=== PATIENT | female | born 1940 | race African-American/Black ===

== ENCOUNTER 2018-07-30 12:48 | Emergency (ER) | payer MEDICARE, MEDICAID ==
[~2018-07-30] VITALS: Ht 170.2 cm; Wt 147.0 kg
[2018-07-30 15:32] LABS: BASOPHILS % 0.5 % (0.0-2.0); EOSINOPHILS % 1.6 % (0.0-5.0); HEMATOCRIT. 43.3 % (36.0-48.0); HEMOGLOBIN. 13.4 g/dL (12.0-16.0); MEAN CORPUSCULAR HEMOGLOBIN 28.7 pg (28.0-32.0); MEAN CORPUSCULAR VOLUME 93.1 fL (81.0-99.0); MEAN PLATELET VOLUME 10.4 fl (7.4-10.4); MONOCYTES % 11.1 % (2.0-8.0); NEUTROPHILS % 59.8 % (40.0-76.0); PLATELET 128 x1000/uL (130-400); RED BLOOD CELL COUNT 4.66 mill/uL (4.2-5.4); RED CELL DISTRIBUTION WIDTH 16.6 % (11.6-14.6)
[2018-07-30 15:37] LABS: CHLORIDE 102 mEq/L (98-107)
[2018-07-30 15:39] LABS: PROTHROMBIN TIME 10.2 sec (9.1-11.1)
[2018-07-30] MEDS ORDERED: ACETAMINOPHEN 325MG TABLET PO ONE (17:00)
[2018-07-30] MEDS ORDERED: OXYMETAZOLINE HCL NASAL SPRAY 15ML BOTHNSTRLS STA (17:31)
[2018-07-30] MEDS ORDERED: SILVER NITRATE APPLICATOR STICK TOP ONE (17:45)
[2018-07-30 19:23] VITALS: BP 144/75
[2018-10-22] MEDS ORDERED: NITR100C MT (14:45)
[2018-10-22] MEDS ORDERED: PULM50 HHN (14:45)
[2018-10-22] MEDS ORDERED: FURO-151 MT (14:45)
[2018-10-22] MEDS ORDERED: ALBU6.7H9 INH (14:48)
== END 2018-07-30 19:31 | disposition home or self-care (01) ==
LOC: ER 13:04
DX: K14.8 Other diseases of tongue (principal); I25.10 Atherosclerotic heart disease of native coronary artery without angina pectoris; I11.0 Hypertensive heart disease with heart failure; I50.9 Heart failure, unspecified; Z86.73 Personal history of transient ischemic attack (TIA), and cerebral infarction without residual deficits; Z98.890 Other specified postprocedural states; Z88.0 Allergy status to penicillin; Z88.5 Allergy status to narcotic agent
CPT/HCPCS: 36415; 80048; 86850; 86900; 99283

== ENCOUNTER 2018-10-19 14:56 | Inpatient (IN) | payer MEDICARE, MEDICAID ==
[~2018-10-19] VITALS: Ht 165.1 cm; Wt 173.8 kg
[2018-10-19] MEDS ORDERED: METHYLPREDNISOLONE SOD SUCC 125 MG/2 ML VIAL IV STA (15:40)
[2018-10-19] MEDS ORDERED: FUROSEMIDE 40MG/4ML VIAL IV ONE (15:45)
[2018-10-19] MEDS ORDERED: LEVOFLOXACIN 750MG PREMIX 150 ML IV ONE (15:45)
[2018-10-19] MEDS ORDERED: ASPIRIN 81MG TABLET PO ONE (15:45)
[2018-10-19] MEDS ORDERED: IPRATROPIUM/ALBUTEROL 0.5-3(2.5)MG/3ML NEB HHN ONE (15:45)
[2018-10-19 16:03] LABS: BG BASE EXCESS 12.4 mmol/L (-2.0-2.0); BG CARBOXYHEMOGLOBIN 0.7 % (0.5-1.5); BG DEOXYHEMOGLOBIN 6.8 % (0.0-5.0); BG FRACTION INSPIRED OXYGEN 32; BG HCO3 ACT 41.2 mmol/L (22.0-26.0); BG METHEMOGLOBIN 0.3 % (0.0-1.5); BG OXYGEN SATURATION 93.1 % (92.0-98.5); BG OXYHEMOGLOBIN 92.2 % (94.0-97.0); BG PCO2 81.1 mmHg (35.0-45.0); BG PH 7.324 (7.350-7.450); BG PO2 71.2 mmHg (75.0-100.0); BG SAMPLE SITE RIGHT RADIAL; BG TOTAL HEMOGLOBIN 10.9 g/dL (12.0-18.0); BG VENT MODE NASAL CANNULA
[2018-10-19 16:14] LABS: BASOPHILS % 0.3 % (0.0-2.0); EOSINOPHILS % 0.7 % (0.0-5.0); HEMATOCRIT. 34.8 % (36.0-48.0); HEMOGLOBIN. 10.4 g/dL (12.0-16.0); LYMPHOCYTES % 16.9 % (20.0-50.0); MEAN CORPUSCULAR HEMOGLOBIN 27.3 pg (28.0-32.0); MEAN CORPUSCULAR VOLUME 91.3 fL (81.0-99.0); MEAN PLATELET VOLUME 9.1 fl (7.4-10.4); MONOCYTES % 12.6 % (2.0-8.0); NEUTROPHILS % 69.5 % (40.0-76.0); PLATELET 175 x1000/uL (130-400); RED BLOOD CELL COUNT 3.81 mill/uL (4.2-5.4); RED CELL DISTRIBUTION WIDTH 16.7 % (11.6-14.6)
[2018-10-19 16:19] LABS: CHLORIDE 104 mEq/L (98-107)
[2018-10-19 16:21] LABS: PARTIAL THROMBOPLASTIN TIME 25.1 sec (23.4-31.0); PROTHROMBIN TIME 10.7 sec (9.6-11.0)
[2018-10-19] MEDS ORDERED: ACETAMINOPHEN 650MG/20.3ML UDC GT PRN (17:30)
[2018-10-19] MEDS ORDERED: GUAIFENESIN 200MG/10ML SUGAR FREE UDC PO PRN (17:30)
[2018-10-19] MEDS ORDERED: ACETAMINOPHEN 650MG SUPP PR PRN (17:30)
[2018-10-19] MEDS ORDERED: NA PHOS,M-B/NA PHOS,DI-BA ENEMA 118ML PR PRN (17:30)
[2018-10-19] MEDS ORDERED: MAGNESIUM/ALUMINUM HYDROXIDE/SIMETHICONE 30ML UDC PO PRN (17:30)
[2018-10-19] MEDS ORDERED: IPRATROPIUM/ALBUTEROL 0.5-3(2.5)MG/3ML NEB INH PRN (17:30)
[2018-10-19] MEDS ORDERED: DOCUSATE SODIUM 100MG CAPSULE PO PRN (17:30)
[2018-10-19] MEDS ORDERED: ONDANSETRON HCL 4MG/2ML INJ IV PRN (17:30)
[2018-10-19] MEDS: SODIUM CHLORIDE 0.9% 1,000 ML IV SCH (19:53)
[2018-10-19 20:17] LABS: CLARITY URINE CLOUDY (CLEAR); COLOR URINE YELLOW (YELLOW); KETONES URINE NEGATIVE (NEGATIVE); LEUKOCYTE ESTERASE URINE 1+ (NEGATIVE); NITRITE URINE POSITIVE (NEGATIVE); OCCULT BLOOD URINE TRACE (NEGATIVE); PH URINE 7.5 (4.5-8.0); PROTEIN URINE TRACE (NEGATIVE); SPECIFIC GRAVITY URINE 1.015 (1.005-1.030)
[2018-10-19 20:20] LABS: *AMPHETAMINES SCREEN URINE NEGATIVE (NEGATIVE); *BARBITURATES SCREEN URINE NEGATIVE (NEGATIVE); *BENZODIAZEPINES SCREEN URINE NEGATIVE (NEGATIVE); *COCAINE SCREEN URINE NEGATIVE (NEGATIVE)
[2018-10-19 20:21] LABS: CANNABINOID URINE SCREEN NEGATIVE (NEGATIVE); METHADONE URINE SCREEN NEGATIVE (NEGATIVE); OPIATES URINE SCREEN NEGATIVE (NEGATIVE); PHENCYCLIDINE URINE SCREEN NEGATIVE (NEGATIVE)
[2018-10-19] MEDS: ACETAMINOPHEN 325MG TABLET PO PRN (23:29)
[2018-10-19 23:30] VITALS: BP 152/74
[2018-10-20] VITALS (12 sets, daily range): BP systolic 141–176; BP diastolic 73–102
[2018-10-20] MEDS: CLONIDINE 0.1MG TABLET PO PRN ×2 (01:13→09:05)
[2018-10-20] MEDS: IPRATROPIUM/ALBUTEROL 0.5-3(2.5)MG/3ML NEB INH SCH ×3 (01:51→14:51)
[2018-10-20] MEDS: DIPHENHYDRAMINE 50MG/ML VIAL IV PRN (03:24)
[2018-10-20] MEDS: SODIUM CHLORIDE 0.9% INJ 3ML FLUSH IVF SCH ×3 (05:47→21:50)
[2018-10-20] MEDS ORDERED: IBUPROFEN 400MG TABLET PO PRN (06:15)
[2018-10-20 06:52] LABS: BG BASE EXCESS 7.9 mmol/L (-2.0-2.0); BG CARBOXYHEMOGLOBIN 0.7 % (0.5-1.5); BG HCO3 ACT 35.2 mmol/L (22.0-26.0); BG METHEMOGLOBIN 0.3 % (0.0-1.5); BG OXYGEN SATURATION 90.9 % (92.0-98.5); BG PCO2 65.3 mmHg (35.0-45.0); BG PO2 64.4 mmHg (75.0-100.0); BG SAMPLE SITE RIGHT RADIAL; BG TOTAL HEMOGLOBIN 10.9 g/dL (12.0-18.0); BG VENT MODE NASAL CANNULA
[2018-10-20 07:06] LABS: BASOPHILS % 0.1 % (0.0-2.0); HEMATOCRIT. 32.4 % (36.0-48.0); HEMOGLOBIN. 9.9 g/dL (12.0-16.0); LYMPHOCYTES % 8.7 % (20.0-50.0); MEAN CORPUSCULAR HEMOGLOBIN 27.4 pg (28.0-32.0); MEAN CORPUSCULAR VOLUME 89.7 fL (81.0-99.0); MEAN PLATELET VOLUME 9.3 fl (7.4-10.4); NEUTROPHILS % 89.2 % (40.0-76.0); PLATELET 196 x1000/uL (130-400); RED BLOOD CELL COUNT 3.61 mill/uL (4.2-5.4); RED CELL DISTRIBUTION WIDTH 16.5 % (11.6-14.6)
[2018-10-20 07:12] LABS: CHLORIDE 101 mEq/L (98-107)
[2018-10-20 07:36] LABS: LDL CHOLESTEROL 101 mg/dL (5-100)
[2018-10-20 07:37] LABS: HDL CHOLESTEROL 47 mg/dL (40-59)
[2018-10-20] MEDS: ENOXAPARIN 40MG/0.4ML SYR SUBCUT SCH ×2 (09:05→20:21)
[2018-10-20] MEDS ORDERED: LIDOCAINE HCL/PF 1% 2ML VIAL ONE (11:06)
[2018-10-20] MEDS: ACETAMINOPHEN 325MG TABLET PO PRN (13:54)
[2018-10-20] MEDS: SODIUM CHLORIDE 0.9% 1,000 ML IV SCH (13:57)
[2018-10-20] MEDS ORDERED: ALBUTEROL (0.083%) 2.5MG/3ML NEB HHN PRN (15:00)
[2018-10-20] MEDS: METHYLPREDNISOLONE SOD SUCC 40 MG/ML VIAL IV SCH ×2 (15:33→21:48)
[2018-10-20] MEDS ORDERED: FUROSEMIDE 40MG/4ML VIAL IVP NR (16:00)
[2018-10-20] MEDS: LEVOFLOXACIN 500MG TABLET PO SCH (16:45)
[2018-10-20] MEDS: FAMOTIDINE 20MG TABLET PO SCH (20:21)
[2018-10-20] MEDS: ALBUTEROL (0.083%) 2.5MG/3ML NEB HHN SCH (20:34)
[2018-10-21] VITALS (13 sets, daily range): BP systolic 150–165; BP diastolic 83–103
[2018-10-21] MEDS: DIPHENHYDRAMINE 50MG/ML VIAL IV PRN (01:25)
[2018-10-21] MEDS: ALBUTEROL (0.083%) 2.5MG/3ML NEB HHN SCH ×2 (01:54→21:25)
[2018-10-21] MEDS: SODIUM CHLORIDE 0.9% INJ 3ML FLUSH IVF SCH ×3 (05:50→21:00)
[2018-10-21] MEDS: METHYLPREDNISOLONE SOD SUCC 40 MG/ML VIAL IV SCH (05:50)
[2018-10-21] MEDS: ENOXAPARIN 40MG/0.4ML SYR SUBCUT SCH ×2 (08:47→21:00)
[2018-10-21] MEDS: FUROSEMIDE 40MG/4ML VIAL IVP SCH (08:47)
[2018-10-21] MEDS: CLONIDINE 0.1MG TABLET PO PRN ×2 (09:10→21:36)
[2018-10-21] MEDS: LEVOFLOXACIN 500MG TABLET PO SCH (11:36)
[2018-10-21] MEDS ORDERED: MEROPENEM 500 MG in SODIUM CHLORIDE 0.9% 50 ML IV SCH (12:15)
[2018-10-21 13:19] LABS: CHLORIDE 101 mEq/L (98-107)
[2018-10-21 13:22] LABS: HEMATOCRIT. 34.8 % (36.0-48.0); HEMOGLOBIN. 10.5 g/dL (12.0-16.0); MEAN CORPUSCULAR VOLUME 89.5 fL (81.0-99.0); MEAN PLATELET VOLUME 9.6 fl (7.4-10.4); PLATELET 199 x1000/uL (130-400); RED BLOOD CELL COUNT 3.89 mill/uL (4.2-5.4); RED CELL DISTRIBUTION WIDTH 16.7 % (11.6-14.6)
[2018-10-21] MEDS ORDERED: NITROFURANTOIN 100MG M/M CAPSULE PO SCH (13:30)
[2018-10-21 13:49] LABS: PLATELET ESTIMATE NORMAL
[2018-10-21] MEDS: ACETAMINOPHEN 325MG TABLET PO PRN (18:51)
[2018-10-21] MEDS: NITROFURANTOIN 100MG M/M CAPSULE PO SCH (20:59)
[2018-10-21] MEDS: FAMOTIDINE 20MG TABLET PO SCH (21:00)
[2018-10-22] VITALS (14 sets, daily range): BP systolic 118–162; BP diastolic 79–98
[2018-10-22] MEDS: ALBUTEROL (0.083%) 2.5MG/3ML NEB HHN SCH ×4 (02:00→19:52)
[2018-10-22] MEDS: DIPHENHYDRAMINE 50MG/ML VIAL IV PRN (02:00)
[2018-10-22] MEDS: SODIUM CHLORIDE 0.9% INJ 3ML FLUSH IVF SCH ×3 (06:00→21:25)
[2018-10-22] MEDS ORDERED: METHYLPREDNISOLONE SOD SUCC 40 MG/ML VIAL IV SCH (09:00)
[2018-10-22] MEDS: NITROFURANTOIN 100MG M/M CAPSULE PO SCH ×2 (09:40→21:24)
[2018-10-22] MEDS: FUROSEMIDE 40MG/4ML VIAL IVP SCH (09:40)
[2018-10-22] MEDS: ENOXAPARIN 40MG/0.4ML SYR SUBCUT SCH ×2 (09:41→21:24)
[2018-10-22] MEDS ORDERED: PULM50 HHN (14:45)
[2018-10-22] MEDS ORDERED: FURO-151 MT (14:45)
[2018-10-22] MEDS ORDERED: NITR100C MT (14:45)
[2018-10-22] MEDS ORDERED: ALBU6.7H9 INH (14:48)
[2018-10-22] MEDS: BUDESONIDE 0.5MG/2ML NEB HHN SCH ×2 (16:39→19:52)
[2018-10-22] MEDS: FAMOTIDINE 20MG TABLET PO SCH (21:24)
[2018-10-23] VITALS (10 sets, daily range): BP systolic 139–191; BP diastolic 56–95
[2018-10-23] MEDS: DIPHENHYDRAMINE 50MG/ML VIAL IV PRN (00:57)
[2018-10-23] MEDS: ALBUTEROL (0.083%) 2.5MG/3ML NEB HHN SCH ×2 (01:52→07:50)
[2018-10-23] MEDS: SODIUM CHLORIDE 0.9% INJ 3ML FLUSH IVF SCH (06:29)
[2018-10-23] MEDS: BUDESONIDE 0.5MG/2ML NEB HHN SCH (07:50)
[2018-10-23 08:34] LABS: BASOPHILS % 0.4 % (0.0-2.0); EOSINOPHILS % 1.5 % (0.0-5.0); HEMOGLOBIN. 11.3 g/dL (12.0-16.0); LYMPHOCYTES % 31.3 % (20.0-50.0); MEAN CORPUSCULAR HEMOGLOBIN 27.1 pg (28.0-32.0); MEAN CORPUSCULAR VOLUME 88.9 fL (81.0-99.0); MONOCYTES % 12.2 % (2.0-8.0); NEUTROPHILS % 54.6 % (40.0-76.0); PLATELET 201 x1000/uL (130-400); RED BLOOD CELL COUNT 4.16 mill/uL (4.2-5.4); RED CELL DISTRIBUTION WIDTH 16.9 % (11.6-14.6)
[2018-10-23 08:40] LABS: CHLORIDE 102 mEq/L (98-107)
[2018-10-23] MEDS: FUROSEMIDE 40MG/4ML VIAL IVP SCH (09:11)
[2018-10-23] MEDS: NITROFURANTOIN 100MG M/M CAPSULE PO SCH (09:11)
[2018-10-23] MEDS: ENOXAPARIN 40MG/0.4ML SYR SUBCUT SCH (09:12)
[2018-10-23] MEDS: ACETAMINOPHEN 325MG TABLET PO PRN (09:44)
== END 2018-10-23 12:50 | disposition home or self-care (01) | DRG 871 ==
LOC: ER 14:56 → 5EST 17:10 → EDBEDREQSVC 17:14 → EDBEDREQ 17:14 → ENRESERV 20:06
PROVIDERS: ADMIT Family Medicine; ATTEND Family Medicine
PROC: 5A09357 Assistance with Respiratory Ventilation, Less than 24 Consecutive Hours, Continuous Positive Airway Pressure (ICD-10-PCS; principal; 2018-10-19)
PROC: 5A09357 Assistance with Respiratory Ventilation, Less than 24 Consecutive Hours, Continuous Positive Airway Pressure (ICD-10-PCS; 2018-10-20)
PROC: 5A09357 Assistance with Respiratory Ventilation, Less than 24 Consecutive Hours, Continuous Positive Airway Pressure (ICD-10-PCS; 2018-10-21)
PROC: 5A09357 Assistance with Respiratory Ventilation, Less than 24 Consecutive Hours, Continuous Positive Airway Pressure (ICD-10-PCS; 2018-10-22)
DX: A41.51 Sepsis due to Escherichia coli [E. coli] (principal); J96.01 Acute respiratory failure with hypoxia; I50.43 Acute on chronic combined systolic (congestive) and diastolic (congestive) heart failure; J96.02 Acute respiratory failure with hypercapnia; J44.1 Chronic obstructive pulmonary disease with (acute) exacerbation; E44.1 Mild protein-calorie malnutrition; E66.2 Morbid (severe) obesity with alveolar hypoventilation; N39.0 Urinary tract infection, site not specified; E87.2 Acidosis; I69.354 Hemiplegia and hemiparesis following cerebral infarction affecting left non-dominant side; Z68.43 Body mass index [BMI] 50.0-59.9, adult; I11.0 Hypertensive heart disease with heart failure; I25.10 Atherosclerotic heart disease of native coronary artery without angina pectoris; L89.329 Pressure ulcer of left buttock, unspecified stage; R26.81 Unsteadiness on feet; K21.9 Gastro-esophageal reflux disease without esophagitis; Z99.81 Dependence on supplemental oxygen; Z85.3 Personal history of malignant neoplasm of breast; Z87.891 Personal history of nicotine dependence; Z88.0 Allergy status to penicillin; Z88.5 Allergy status to narcotic agent
CPT/HCPCS: 36415; 36600; 51702; 71045; 80061; 80305; 82375; 82805; 83605; 83880; 84134; 84484; 87077; 87186; 93005; 93970; 94640; 94660; 96365; 96375; 97116; 97162; 97166; 97530; 97535; 99291; A6261; J1200; J1650; J1940; J1956; J2920; J2930; J3490; J7611; J7620; J7626

== ENCOUNTER 2018-12-01 16:35 | Inpatient (IN) | payer MEDICARE, MEDICAID ==
[~2018-12-01] VITALS: Ht 170.2 cm; Wt 163.3 kg
[~2018-12-01 16:35] MED LIST: ALBU6.7H9 INH; ESCI20TA36 PO; FURO-151 MT; NITR100C MT; PULM50 HHN
[2018-12-01] MEDS ORDERED: CLONIDINE 0.1MG TABLET PO PRN (19:15)
[2018-12-01] MEDS ORDERED: IPRATROPIUM/ALBUTEROL 0.5-3(2.5)MG/3ML NEB HHN PRN (19:15)
[2018-12-01] MEDS ORDERED: DIPHENHYDRAMINE 50MG CAPSULE PO PRN ×2 (19:15→19:30)
[2018-12-01] MEDS ORDERED: DEXTROSE 50% WATER 50ML SYRINGE IV PRN ×2 (19:15→19:45)
[2018-12-01] MEDS ORDERED: ONDANSETRON 4MG ODT PO PRN (19:15)
[2018-12-01] MEDS: IPRATROPIUM/ALBUTEROL 0.5-3(2.5)MG/3ML NEB HHN SCH (20:02)
[2018-12-01 20:15] VITALS: BP 95/51
[2018-12-01] MEDS ORDERED: CITALOPRAM HYDROBROMIDE 20MG TABLET PO SCH (21:00)
[2018-12-01] MEDS: FUROSEMIDE 40MG TABLET PO SCH (21:48)
[2018-12-01] MEDS: ENOXAPARIN 40MG/0.4ML SYR SUBCUT SCH (21:49)
[2018-12-01] MEDS: AMLODIPINE 2.5MG TABLET PO SCH (21:49)
[2018-12-01] MEDS: CITALOPRAM HYDROBROMIDE 20MG TABLET PO SCH (21:49)
[2018-12-01] MEDS: BLOOD SUGAR DIAGNOSTIC STRIP TEST SCH (21:54)
[2018-12-01] MEDS: INSULIN LISPRO 100 UNITS/ML SUBCUT SCH (21:59)
[2018-12-01] MEDS: MAGNESIUM/ALUMINUM HYDROXIDE/SIMETHICONE 30ML UDC PO PRN (22:32)
[2018-12-01] MEDS: NITROFURANTOIN MACROCRYSTAL 50MG CAPSULE PO SCH (23:14)
[2018-12-02] MEDS: IPRATROPIUM/ALBUTEROL 0.5-3(2.5)MG/3ML NEB HHN SCH ×4 (01:06→20:04)
[2018-12-02] MEDS: NITROFURANTOIN MACROCRYSTAL 50MG CAPSULE PO SCH ×4 (06:02→23:26)
[2018-12-02] MEDS: BLOOD SUGAR DIAGNOSTIC STRIP TEST SCH ×4 (06:08→20:49)
[2018-12-02] MEDS: INSULIN LISPRO 100 UNITS/ML SUBCUT SCH ×4 (06:28→20:49)
[2018-12-02 07:29] LABS: CHLORIDE 98 mEq/L (98-107)
[2018-12-02 07:36] LABS: HEMATOCRIT. 37.6 % (36.0-48.0); HEMOGLOBIN. 11.6 g/dL (12.0-16.0); MEAN CORPUSCULAR HEMOGLOBIN 26.2 pg (28.0-32.0); MEAN CORPUSCULAR VOLUME 85.1 fL (81.0-99.0); MEAN PLATELET VOLUME 8.7 fl (7.4-10.4); PLATELET 171 x1000/uL (130-400); RED BLOOD CELL COUNT 4.42 mill/uL (4.2-5.4); RED CELL DISTRIBUTION WIDTH 18.1 % (11.6-14.6)
[2018-12-02 08:30] VITALS: BP 144/96
[2018-12-02] MEDS: FUROSEMIDE 40MG TABLET PO SCH ×2 (10:04→20:38)
[2018-12-02] MEDS: AMLODIPINE 2.5MG TABLET PO SCH ×2 (10:04→20:38)
[2018-12-02] MEDS: ENOXAPARIN 40MG/0.4ML SYR SUBCUT SCH ×2 (10:06→20:39)
[2018-12-02 10:13] LABS: PLATELET ESTIMATE NORMAL
[2018-12-02] MEDS ORDERED: POTASSIUM CHLORIDE 20MEQ TABLET SR PO NR (10:30)
[2018-12-02] MEDS: ACETAMINOPHEN 650MG/20.3ML UDC PO PRN (10:38)
[2018-12-02] MEDS: MAGNESIUM/ALUMINUM HYDROXIDE/SIMETHICONE 30ML UDC PO PRN (18:38)
[2018-12-02 20:00] VITALS: BP 119/78
[2018-12-02] MEDS: CITALOPRAM HYDROBROMIDE 20MG TABLET PO SCH (20:37)
[2018-12-03] MEDS: ACETAMINOPHEN 650MG/20.3ML UDC PO PRN (01:13)
[2018-12-03] MEDS: NITROFURANTOIN MACROCRYSTAL 50MG CAPSULE PO SCH ×4 (06:25→23:07)
[2018-12-03] MEDS: BLOOD SUGAR DIAGNOSTIC STRIP TEST SCH ×4 (06:29→21:26)
[2018-12-03] MEDS: INSULIN LISPRO 100 UNITS/ML SUBCUT SCH ×4 (06:37→21:28)
[2018-12-03 07:17] LABS: CHLORIDE 98 mEq/L (98-107)
[2018-12-03 07:28] LABS: HEMATOCRIT. 36.4 % (36.0-48.0); HEMOGLOBIN. 10.9 g/dL (12.0-16.0); MEAN CORPUSCULAR HEMOGLOBIN 25.5 pg (28.0-32.0); MEAN CORPUSCULAR VOLUME 85.2 fL (81.0-99.0); MEAN PLATELET VOLUME 8.9 fl (7.4-10.4); PLATELET 159 x1000/uL (130-400); RED BLOOD CELL COUNT 4.28 mill/uL (4.2-5.4); RED CELL DISTRIBUTION WIDTH 18.2 % (11.6-14.6)
[2018-12-03 08:12] VITALS: BP 140/74
[2018-12-03] MEDS ORDERED: POTASSIUM CHLORIDE 20MEQ TABLET SR PO NR (08:30)
[2018-12-03] MEDS: ENOXAPARIN 40MG/0.4ML SYR SUBCUT SCH ×2 (09:00→21:26)
[2018-12-03] MEDS: FUROSEMIDE 40MG TABLET PO SCH ×2 (09:00→21:25)
[2018-12-03] MEDS: AMLODIPINE 2.5MG TABLET PO SCH ×2 (09:00→21:00)
[2018-12-03] MEDS: IPRATROPIUM/ALBUTEROL 0.5-3(2.5)MG/3ML NEB HHN SCH ×3 (09:52→21:25)
[2018-12-03] MEDS: MAGNESIUM/ALUMINUM HYDROXIDE/SIMETHICONE 30ML UDC PO PRN (10:25)
[2018-12-03 16:28] LABS: PLATELET ESTIMATE NORMAL
[2018-12-03 16:57] LABS: CLARITY URINE CLOUDY (CLEAR); COLOR URINE YELLOW (YELLOW); KETONES URINE NEGATIVE (NEGATIVE); LEUKOCYTE ESTERASE URINE 1+ (NEGATIVE); NITRITE URINE NEGATIVE (NEGATIVE); OCCULT BLOOD URINE 1+ (NEGATIVE); PH URINE 5.5 (4.5-8.0); PROTEIN URINE TRACE (NEGATIVE); SPECIFIC GRAVITY URINE 1.016 (1.005-1.030)
[2018-12-03 20:00] VITALS: BP 118/64
[2018-12-03] MEDS: CITALOPRAM HYDROBROMIDE 20MG TABLET PO SCH (21:24)
[2018-12-03] MEDS ORDERED: ZOLPIDEM TARTRATE 5MG TABLET PO PRN (23:00)
[2018-12-04] MEDS: DIPHENHYDRAMINE 25MG CAPSULE PO PRN (00:52)
[2018-12-04] MEDS: ACETAMINOPHEN 650MG/20.3ML UDC PO PRN (00:52)
[2018-12-04] MEDS: IPRATROPIUM/ALBUTEROL 0.5-3(2.5)MG/3ML NEB HHN SCH ×4 (02:05→20:54)
[2018-12-04] MEDS: BLOOD SUGAR DIAGNOSTIC STRIP TEST SCH ×4 (06:12→21:09)
[2018-12-04] MEDS: INSULIN LISPRO 100 UNITS/ML SUBCUT SCH ×4 (06:16→21:09)
[2018-12-04] MEDS: NITROFURANTOIN MACROCRYSTAL 50MG CAPSULE PO SCH ×4 (06:31→23:52)
[2018-12-04 07:01] LABS: HEMATOCRIT. 34.9 % (36.0-48.0); HEMOGLOBIN. 10.8 g/dL (12.0-16.0); MEAN CORPUSCULAR HEMOGLOBIN 26.1 pg (28.0-32.0); MEAN CORPUSCULAR VOLUME 84.4 fL (81.0-99.0); MEAN PLATELET VOLUME 9.3 fl (7.4-10.4); PLATELET 170 x1000/uL (130-400); RED BLOOD CELL COUNT 4.14 mill/uL (4.2-5.4); RED CELL DISTRIBUTION WIDTH 18.4 % (11.6-14.6)
[2018-12-04 07:14] LABS: FOLIC ACID (FOLATE) SERUM 8.4 ng/mL (>5.38)
[2018-12-04 07:23] LABS: CHLORIDE 100 mEq/L (98-107)
[2018-12-04 07:54] LABS: TOTAL IRON BINDING CAPACITY 404 ug/dL (250-450)
[2018-12-04 07:57] LABS: PHOSPHORUS 3.5 mg/dL (2.5-4.9)
[2018-12-04 08:08] VITALS: BP 146/92
[2018-12-04] MEDS: POTASSIUM CHLORIDE 20MEQ TABLET SR PO SCH (09:42)
[2018-12-04] MEDS: AMLODIPINE 2.5MG TABLET PO SCH ×2 (09:42→20:33)
[2018-12-04] MEDS: FUROSEMIDE 40MG TABLET PO SCH ×2 (09:42→20:34)
[2018-12-04] MEDS: ENOXAPARIN 40MG/0.4ML SYR SUBCUT SCH ×2 (09:43→20:34)
[2018-12-04 10:38] LABS: NUCLEATED RED BLOOD CELLS 1 /100 WBC; PLATELET ESTIMATE NORMAL
[2018-12-04] MEDS ORDERED: DOCUSATE SODIUM 100MG CAPSULE PO ONE (12:30)
[2018-12-04] MEDS ORDERED: IRON SUCROSE COMPLEX 100 MG/5 ML ML IV SCH (14:00)
[2018-12-04 20:00] VITALS: BP 126/77
[2018-12-04] MEDS: CITALOPRAM HYDROBROMIDE 20MG TABLET PO SCH (20:33)
[2018-12-04] MEDS: DOCUSATE SODIUM 100MG CAPSULE PO SCH (20:34)
[2018-12-04] MEDS: IRON SUCROSE COMPLEX 100 MG in SODIUM CHLORIDE 0.9% 100 ML IV SCH (21:44)
[2018-12-05] MEDS: IPRATROPIUM/ALBUTEROL 0.5-3(2.5)MG/3ML NEB HHN SCH ×3 (02:25→15:39)
[2018-12-05] MEDS: NITROFURANTOIN MACROCRYSTAL 50MG CAPSULE PO SCH ×2 (05:48→12:11)
[2018-12-05] MEDS: BLOOD SUGAR DIAGNOSTIC STRIP TEST SCH ×4 (06:18→20:40)
[2018-12-05] MEDS: INSULIN LISPRO 100 UNITS/ML SUBCUT SCH ×4 (06:18→20:41)
[2018-12-05 06:45] LABS: HEMATOCRIT. 34.6 % (36.0-48.0); HEMOGLOBIN. 10.5 g/dL (12.0-16.0); MEAN CORPUSCULAR HEMOGLOBIN 25.9 pg (28.0-32.0); MEAN CORPUSCULAR VOLUME 85.2 fL (81.0-99.0); MEAN PLATELET VOLUME 8.9 fl (7.4-10.4); PLATELET 168 x1000/uL (130-400); RED BLOOD CELL COUNT 4.07 mill/uL (4.2-5.4); RED CELL DISTRIBUTION WIDTH 18.6 % (11.6-14.6)
[2018-12-05 07:00] VITALS: BP 140/87
[2018-12-05 07:02] LABS: CHLORIDE 100 mEq/L (98-107)
[2018-12-05] MEDS: FUROSEMIDE 40MG TABLET PO SCH ×2 (08:24→20:35)
[2018-12-05] MEDS: DOCUSATE SODIUM 100MG CAPSULE PO SCH ×2 (08:24→16:00)
[2018-12-05] MEDS: POTASSIUM CHLORIDE 20MEQ TABLET SR PO SCH (08:24)
[2018-12-05] MEDS: AMLODIPINE 2.5MG TABLET PO SCH ×2 (08:24→20:35)
[2018-12-05] MEDS: ENOXAPARIN 40MG/0.4ML SYR SUBCUT SCH ×2 (08:25→20:35)
[2018-12-05 09:08] LABS: ALBUMIN 3.5 g/dL (2.9-4.4); ALPHA-1-GLOBULIN 0.2 g/dL (0.0-0.4); ALPHA-2-GLOBULIN 0.7 g/dL (0.4-1.0); BETA GLOBULIN 1.4 g/dL (0.7-1.3); GAMMA GLOBULINS 1.3 g/dL (0.4-1.8); GLOBULIN TOTAL 3.5 g/dL (2.2-3.9); M-SPIKE Not Observed g/dL (Not Observed)
[2018-12-05 10:25] LABS: PLATELET ESTIMATE NORMAL
[2018-12-05] MEDS: ACETAMINOPHEN 650MG/20.3ML UDC PO PRN (15:55)
[2018-12-05 20:00] VITALS: BP 121/82
[2018-12-05] MEDS: IRON SUCROSE COMPLEX 100 MG in SODIUM CHLORIDE 0.9% 100 ML IV SCH (20:36)
[2018-12-05] MEDS: CITALOPRAM HYDROBROMIDE 20MG TABLET PO SCH (21:31)
[2018-12-06] MEDS: IPRATROPIUM/ALBUTEROL 0.5-3(2.5)MG/3ML NEB HHN SCH ×4 (00:38→22:37)
[2018-12-06] MEDS: DIPHENHYDRAMINE 25MG CAPSULE PO PRN ×2 (01:34→23:00)
[2018-12-06] MEDS: ACETAMINOPHEN 650MG/20.3ML UDC PO PRN ×2 (01:35→23:01)
[2018-12-06] MEDS: BLOOD SUGAR DIAGNOSTIC STRIP TEST SCH ×4 (06:08→21:00)
[2018-12-06] MEDS: INSULIN LISPRO 100 UNITS/ML SUBCUT SCH ×4 (06:18→22:03)
[2018-12-06 07:18] LABS: HEMATOCRIT. 32.9 % (36.0-48.0); HEMOGLOBIN. 10.2 g/dL (12.0-16.0); MEAN CORPUSCULAR HEMOGLOBIN 26.3 pg (28.0-32.0); MEAN CORPUSCULAR VOLUME 84.9 fL (81.0-99.0); PLATELET 172 x1000/uL (130-400); RED BLOOD CELL COUNT 3.87 mill/uL (4.2-5.4); RED CELL DISTRIBUTION WIDTH 18.2 % (11.6-14.6)
[2018-12-06] MEDS: DOCUSATE SODIUM 100MG CAPSULE PO SCH ×2 (07:54→15:56)
[2018-12-06 08:03] VITALS: BP 141/89
[2018-12-06] MEDS: ENOXAPARIN 40MG/0.4ML SYR SUBCUT SCH (08:37)
[2018-12-06] MEDS: POTASSIUM CHLORIDE 20MEQ TABLET SR PO SCH (08:38)
[2018-12-06] MEDS: FUROSEMIDE 40MG TABLET PO SCH ×2 (08:38→22:02)
[2018-12-06] MEDS: TRAMADOL 50MG TABLET PO PRN (08:38)
[2018-12-06] MEDS: AMLODIPINE 2.5MG TABLET PO SCH ×2 (08:38→22:03)
[2018-12-06] MEDS ORDERED: CYCLOBENZAPRINE 10MG TABLET PO PRN (09:00)
[2018-12-06 10:22] LABS: PLATELET ESTIMATE NORMAL
[2018-12-06] MEDS: FERROUS SULFATE 325MG TABLET PO SCH ×2 (12:33→16:19)
[2018-12-06] MEDS: ENOXAPARIN 150MG/ML SYR SUBCUT SCH (16:55)
[2018-12-06 17:12] LABS: CLARITY URINE CLOUDY (CLEAR); COLOR URINE YELLOW (YELLOW); KETONES URINE NEGATIVE (NEGATIVE); LEUKOCYTE ESTERASE URINE 2+ (NEGATIVE); NITRITE URINE POSITIVE (NEGATIVE); OCCULT BLOOD URINE 3+ (NEGATIVE); PROTEIN URINE NEGATIVE (NEGATIVE); SPECIFIC GRAVITY URINE 1.012 (1.005-1.030); UROBILINOGEN URINE 0.2 E.U./dL (0.2-1.0)
[2018-12-06 20:00] VITALS: BP 119/80
[2018-12-06] MEDS: CITALOPRAM HYDROBROMIDE 20MG TABLET PO SCH (22:02)
[2018-12-07 04:22] LABS: ANGIOTENSION CONVERTING ENZYME 27 U/L (14-82)
[2018-12-07] MEDS: IPRATROPIUM/ALBUTEROL 0.5-3(2.5)MG/3ML NEB HHN SCH ×4 (04:33→21:22)
[2018-12-07] MEDS: BLOOD SUGAR DIAGNOSTIC STRIP TEST SCH ×4 (05:39→20:39)
[2018-12-07] MEDS: ENOXAPARIN 150MG/ML SYR SUBCUT SCH ×2 (05:40→17:12)
[2018-12-07] MEDS: INSULIN LISPRO 100 UNITS/ML SUBCUT SCH ×4 (05:51→20:39)
[2018-12-07 07:14] LABS: HEMATOCRIT. 33.4 % (36.0-48.0); HEMOGLOBIN. 10.4 g/dL (12.0-16.0); MEAN CORPUSCULAR HEMOGLOBIN 26.6 pg (28.0-32.0); MEAN CORPUSCULAR VOLUME 85.7 fL (81.0-99.0); MEAN PLATELET VOLUME 10.1 fl (7.4-10.4); PLATELET 187 x1000/uL (130-400); RED CELL DISTRIBUTION WIDTH 18.5 % (11.6-14.6)
[2018-12-07 08:08] VITALS: BP 112/73
[2018-12-07 08:43] LABS: CHLORIDE 103 mEq/L (98-107)
[2018-12-07] MEDS: FUROSEMIDE 40MG TABLET PO SCH ×2 (09:22→20:39)
[2018-12-07] MEDS: POTASSIUM CHLORIDE 20MEQ TABLET SR PO SCH (09:22)
[2018-12-07] MEDS: DOCUSATE SODIUM 100MG CAPSULE PO SCH ×2 (09:22→17:10)
[2018-12-07] MEDS: AMLODIPINE 2.5MG TABLET PO SCH ×2 (09:23→20:39)
[2018-12-07] MEDS: FERROUS SULFATE 325MG TABLET PO SCH ×3 (09:23→17:10)
[2018-12-07] MEDS ORDERED: CEFTRIAXONE 2 G PREMIX 50 ML IV SCH (09:45)
[2018-12-07] MEDS: LEVOFLOXACIN 250MG TABLET PO SCH (10:47)
[2018-12-07 20:00] VITALS: BP 118/75
[2018-12-07] MEDS: CITALOPRAM HYDROBROMIDE 20MG TABLET PO SCH (20:39)
[2018-12-07] MEDS: ACETAMINOPHEN 650MG/20.3ML UDC PO PRN (23:05)
[2018-12-07] MEDS: DIPHENHYDRAMINE 25MG CAPSULE PO PRN (23:05)
[2018-12-08] MEDS: IPRATROPIUM/ALBUTEROL 0.5-3(2.5)MG/3ML NEB HHN SCH ×3 (00:44→21:41)
[2018-12-08 03:46] LABS: PLATELET ESTIMATE NORMAL
[2018-12-08] MEDS: BLOOD SUGAR DIAGNOSTIC STRIP TEST SCH ×4 (06:47→21:55)
[2018-12-08] MEDS: ENOXAPARIN 150MG/ML SYR SUBCUT SCH ×2 (06:47→16:57)
[2018-12-08 07:12] LABS: HEMATOCRIT. 34.6 % (36.0-48.0); HEMOGLOBIN. 10.5 g/dL (12.0-16.0); MEAN CORPUSCULAR HEMOGLOBIN 25.9 pg (28.0-32.0); PLATELET 182 x1000/uL (130-400); RED BLOOD CELL COUNT 4.07 mill/uL (4.2-5.4); RED CELL DISTRIBUTION WIDTH 18.4 % (11.6-14.6)
[2018-12-08 08:05] VITALS: BP 127/77
[2018-12-08] MEDS: FUROSEMIDE 40MG TABLET PO SCH ×2 (08:35→21:54)
[2018-12-08] MEDS: FERROUS SULFATE 325MG TABLET PO SCH ×3 (08:35→16:56)
[2018-12-08] MEDS: AMLODIPINE 2.5MG TABLET PO SCH ×2 (08:35→21:00)
[2018-12-08] MEDS: DOCUSATE SODIUM 100MG CAPSULE PO SCH ×2 (08:35→16:56)
[2018-12-08] MEDS: INSULIN LISPRO 100 UNITS/ML SUBCUT SCH ×4 (08:36→21:00)
[2018-12-08] MEDS: POTASSIUM CHLORIDE 20MEQ TABLET SR PO SCH (08:36)
[2018-12-08] MEDS: LEVOFLOXACIN 250MG TABLET PO SCH (10:32)
[2018-12-08] MEDS: ACETAMINOPHEN 650MG/20.3ML UDC PO PRN ×2 (13:21→23:35)
[2018-12-08 13:32] LABS: PLATELET ESTIMATE NORMAL
[2018-12-08 20:00] VITALS: BP 125/83
[2018-12-08] MEDS: CITALOPRAM HYDROBROMIDE 20MG TABLET PO SCH (21:54)
[2018-12-09] MEDS: IPRATROPIUM/ALBUTEROL 0.5-3(2.5)MG/3ML NEB HHN SCH ×4 (02:16→20:45)
[2018-12-09 04:12] LABS: 25-HYDROXY VITAMIN D3 19 ng/mL (.)
[2018-12-09] MEDS: ENOXAPARIN 150MG/ML SYR SUBCUT SCH ×2 (05:54→17:44)
[2018-12-09] MEDS: BLOOD SUGAR DIAGNOSTIC STRIP TEST SCH ×4 (05:54→21:48)
[2018-12-09] MEDS: INSULIN LISPRO 100 UNITS/ML SUBCUT SCH ×4 (06:23→21:00)
[2018-12-09 07:20] LABS: HEMATOCRIT. 34.4 % (36.0-48.0); HEMOGLOBIN. 10.6 g/dL (12.0-16.0); MEAN CORPUSCULAR HEMOGLOBIN 26.3 pg (28.0-32.0); MEAN CORPUSCULAR VOLUME 85.6 fL (81.0-99.0); MEAN PLATELET VOLUME 9.2 fl (7.4-10.4); PLATELET 187 x1000/uL (130-400); RED BLOOD CELL COUNT 4.02 mill/uL (4.2-5.4); RED CELL DISTRIBUTION WIDTH 18.1 % (11.6-14.6)
[2018-12-09 08:00] VITALS: BP 151/96
[2018-12-09] MEDS: AMLODIPINE 2.5MG TABLET PO SCH ×3 (09:00→21:48)
[2018-12-09] MEDS: DOCUSATE SODIUM 100MG CAPSULE PO SCH ×2 (09:07→17:14)
[2018-12-09] MEDS: FUROSEMIDE 40MG TABLET PO SCH ×2 (09:07→21:47)
[2018-12-09] MEDS: POTASSIUM CHLORIDE 20MEQ TABLET SR PO SCH (09:07)
[2018-12-09] MEDS: FERROUS SULFATE 325MG TABLET PO SCH ×3 (09:08→17:14)
[2018-12-09] MEDS: TRAMADOL 50MG TABLET PO PRN (09:55)
[2018-12-09] MEDS ORDERED: AZTREONAM 1 G in DEXTROSE 5% WATER 50 ML IV SCH (12:00)
[2018-12-09 14:02] LABS: NUCLEATED RED BLOOD CELLS 1 /100 WBC; PLATELET ESTIMATE NORMAL
[2018-12-09] MEDS ORDERED: FAMO-135 PO (16:38)
[2018-12-09] MEDS ORDERED: GABA-531 PO (16:38)
[2018-12-09] MEDS ORDERED: ATEN-42 PO (16:38)
[2018-12-09] MEDS ORDERED: AMLO5TAB88 PO (16:38)
[2018-12-09 20:00] VITALS: BP 126/85
[2018-12-09] MEDS: CITALOPRAM HYDROBROMIDE 20MG TABLET PO SCH (21:47)
[2018-12-09] MEDS: DIPHENHYDRAMINE 25MG CAPSULE PO PRN ×2 (23:08→23:14)
[2018-12-09] MEDS: ACETAMINOPHEN 650MG/20.3ML UDC PO PRN (23:08)
[2018-12-10] MEDS: IPRATROPIUM/ALBUTEROL 0.5-3(2.5)MG/3ML NEB HHN SCH ×4 (03:50→20:25)
[2018-12-10] MEDS: ENOXAPARIN 150MG/ML SYR SUBCUT SCH ×2 (05:29→17:33)
[2018-12-10] MEDS: BLOOD SUGAR DIAGNOSTIC STRIP TEST SCH ×4 (05:30→21:00)
[2018-12-10] MEDS: INSULIN LISPRO 100 UNITS/ML SUBCUT SCH ×4 (06:18→21:00)
[2018-12-10 06:31] LABS: BASOPHILS % 0.4 % (0.0-2.0); EOSINOPHILS % 2.3 % (0.0-5.0); HEMATOCRIT. 35.6 % (36.0-48.0); HEMOGLOBIN. 10.8 g/dL (12.0-16.0); LYMPHOCYTES % 38.4 % (20.0-50.0); MEAN CORPUSCULAR VOLUME 85.8 fL (81.0-99.0); MEAN PLATELET VOLUME 8.6 fl (7.4-10.4); MONOCYTES % 13.3 % (2.0-8.0); NEUTROPHILS % 45.6 % (40.0-76.0); PLATELET 182 x1000/uL (130-400); RED BLOOD CELL COUNT 4.15 mill/uL (4.2-5.4); RED CELL DISTRIBUTION WIDTH 18.9 % (11.6-14.6)
[2018-12-10 08:10] VITALS: BP 136/82
[2018-12-10] MEDS: FERROUS SULFATE 325MG TABLET PO SCH ×3 (09:25→16:32)
[2018-12-10] MEDS: AMLODIPINE 2.5MG TABLET PO SCH ×2 (09:25→22:35)
[2018-12-10] MEDS: FUROSEMIDE 40MG TABLET PO SCH ×2 (09:25→22:34)
[2018-12-10] MEDS: DOCUSATE SODIUM 100MG CAPSULE PO SCH ×2 (09:25→16:32)
[2018-12-10] MEDS: POTASSIUM CHLORIDE 20MEQ TABLET SR PO SCH (09:26)
[2018-12-10] MEDS ORDERED: ERGOCALCIFEROL 50000UNITS CAPSULE PO NR (10:30)
[2018-12-10] MEDS: ACETAMINOPHEN 650MG/20.3ML UDC PO PRN (16:40)
[2018-12-10 20:00] VITALS: BP 130/81
[2018-12-10] MEDS: CITALOPRAM HYDROBROMIDE 20MG TABLET PO SCH (22:34)
[2018-12-11] MEDS: IPRATROPIUM/ALBUTEROL 0.5-3(2.5)MG/3ML NEB HHN SCH ×3 (00:59→22:02)
[2018-12-11] MEDS: ENOXAPARIN 150MG/ML SYR SUBCUT SCH ×2 (05:59→17:34)
[2018-12-11] MEDS: BLOOD SUGAR DIAGNOSTIC STRIP TEST SCH ×4 (06:39→21:00)
[2018-12-11] MEDS: INSULIN LISPRO 100 UNITS/ML SUBCUT SCH ×4 (06:40→21:00)
[2018-12-11 08:00] VITALS: BP 134/87
[2018-12-11] MEDS: FERROUS SULFATE 325MG TABLET PO SCH ×3 (09:12→17:32)
[2018-12-11] MEDS: FUROSEMIDE 40MG TABLET PO SCH ×2 (09:12→21:00)
[2018-12-11] MEDS: NITROFURANTOIN 100MG M/M CAPSULE PO SCH ×2 (09:12→22:19)
[2018-12-11] MEDS: POTASSIUM CHLORIDE 20MEQ TABLET SR PO SCH (09:12)
[2018-12-11] MEDS: AMLODIPINE 2.5MG TABLET PO SCH ×2 (09:13→22:19)
[2018-12-11] MEDS: DOCUSATE SODIUM 100MG CAPSULE PO SCH ×2 (09:13→17:32)
[2018-12-11 20:00] VITALS: BP 122/87
[2018-12-11] MEDS: CITALOPRAM HYDROBROMIDE 20MG TABLET PO SCH (22:19)
[2018-12-12] MEDS: IPRATROPIUM/ALBUTEROL 0.5-3(2.5)MG/3ML NEB HHN SCH ×5 (02:45→20:42)
[2018-12-12] MEDS: ENOXAPARIN 150MG/ML SYR SUBCUT SCH ×2 (06:20→18:27)
[2018-12-12] MEDS: BLOOD SUGAR DIAGNOSTIC STRIP TEST SCH ×4 (06:20→20:57)
[2018-12-12] MEDS: INSULIN LISPRO 100 UNITS/ML SUBCUT SCH ×4 (06:24→20:56)
[2018-12-12 06:38] LABS: BASOPHILS % 0.4 % (0.0-2.0); EOSINOPHILS % 2.7 % (0.0-5.0); HEMATOCRIT. 35.3 % (36.0-48.0); HEMOGLOBIN. 10.8 g/dL (12.0-16.0); LYMPHOCYTES % 31.2 % (20.0-50.0); MEAN CORPUSCULAR HEMOGLOBIN 26.3 pg (28.0-32.0); MEAN CORPUSCULAR VOLUME 85.6 fL (81.0-99.0); MEAN PLATELET VOLUME 9.1 fl (7.4-10.4); MONOCYTES % 13.1 % (2.0-8.0); NEUTROPHILS % 52.6 % (40.0-76.0); PLATELET 185 x1000/uL (130-400); RED BLOOD CELL COUNT 4.13 mill/uL (4.2-5.4); RED CELL DISTRIBUTION WIDTH 18.8 % (11.6-14.6)
[2018-12-12 08:00] VITALS: BP 133/73
[2018-12-12] MEDS: POTASSIUM CHLORIDE 20MEQ TABLET SR PO SCH (09:11)
[2018-12-12] MEDS: AMLODIPINE 2.5MG TABLET PO SCH ×2 (09:11→20:56)
[2018-12-12] MEDS: FERROUS SULFATE 325MG TABLET PO SCH ×3 (09:12→18:27)
[2018-12-12] MEDS: NITROFURANTOIN 100MG M/M CAPSULE PO SCH ×2 (09:12→20:56)
[2018-12-12] MEDS: FUROSEMIDE 40MG TABLET PO SCH ×3 (09:12→21:20)
[2018-12-12] MEDS: DOCUSATE SODIUM 100MG CAPSULE PO SCH ×2 (09:12→18:26)
[2018-12-12] MEDS: ACETAMINOPHEN 650MG/20.3ML UDC PO PRN (11:40)
[2018-12-12 20:00] VITALS: BP 126/79
[2018-12-12] MEDS: CITALOPRAM HYDROBROMIDE 20MG TABLET PO SCH (20:56)
[2018-12-13] MEDS: IPRATROPIUM/ALBUTEROL 0.5-3(2.5)MG/3ML NEB HHN SCH ×4 (02:22→20:27)
[2018-12-13] MEDS: INSULIN LISPRO 100 UNITS/ML SUBCUT SCH ×4 (05:58→22:14)
[2018-12-13] MEDS: BLOOD SUGAR DIAGNOSTIC STRIP TEST SCH ×4 (05:58→21:00)
[2018-12-13] MEDS: ENOXAPARIN 150MG/ML SYR SUBCUT SCH ×2 (05:58→17:06)
[2018-12-13 08:37] VITALS: BP 136/88
[2018-12-13 09:02] LABS: CLARITY URINE CLEAR (CLEAR); COLOR URINE YELLOW (YELLOW); KETONES URINE NEGATIVE (NEGATIVE); LEUKOCYTE ESTERASE URINE NEGATIVE (NEGATIVE); NITRITE URINE NEGATIVE (NEGATIVE); OCCULT BLOOD URINE NEGATIVE (NEGATIVE); PROTEIN URINE NEGATIVE (NEGATIVE); UROBILINOGEN URINE 0.2 E.U./dL (0.2-1.0)
[2018-12-13] MEDS: POTASSIUM CHLORIDE 20MEQ TABLET SR PO SCH (09:40)
[2018-12-13] MEDS: DOCUSATE SODIUM 100MG CAPSULE PO SCH ×2 (09:40→17:02)
[2018-12-13] MEDS: NITROFURANTOIN 100MG M/M CAPSULE PO SCH ×2 (09:40→22:13)
[2018-12-13] MEDS: FERROUS SULFATE 325MG TABLET PO SCH ×3 (09:41→17:01)
[2018-12-13] MEDS: FUROSEMIDE 40MG TABLET PO SCH ×2 (09:41→22:14)
[2018-12-13] MEDS: AMLODIPINE 2.5MG TABLET PO SCH ×2 (09:41→22:14)
[2018-12-13] MEDS: ACETAMINOPHEN 650MG/20.3ML UDC PO PRN ×2 (15:14→23:49)
[2018-12-13 20:00] VITALS: BP 115/80
[2018-12-13] MEDS: CITALOPRAM HYDROBROMIDE 20MG TABLET PO SCH (22:14)
[2018-12-14] MEDS: IPRATROPIUM/ALBUTEROL 0.5-3(2.5)MG/3ML NEB HHN SCH ×2 (02:00→08:05)
[2018-12-14] MEDS: DIPHENHYDRAMINE 25MG CAPSULE PO PRN (02:49)
[2018-12-14] MEDS: INSULIN LISPRO 100 UNITS/ML SUBCUT SCH ×2 (06:08→12:21)
[2018-12-14] MEDS: BLOOD SUGAR DIAGNOSTIC STRIP TEST SCH ×2 (06:08→11:36)
[2018-12-14] MEDS: ENOXAPARIN 150MG/ML SYR SUBCUT SCH (06:15)
[2018-12-14 08:00] VITALS: BP 128/77
[2018-12-14 08:30] VITALS: BP 21/128
[2018-12-14] MEDS: FERROUS SULFATE 325MG TABLET PO SCH ×2 (08:51→12:36)
[2018-12-14] MEDS: NITROFURANTOIN 100MG M/M CAPSULE PO SCH (08:51)
[2018-12-14] MEDS: POTASSIUM CHLORIDE 20MEQ TABLET SR PO SCH (08:51)
[2018-12-14] MEDS: FUROSEMIDE 40MG TABLET PO SCH (08:51)
[2018-12-14] MEDS: AMLODIPINE 2.5MG TABLET PO SCH (08:51)
[2018-12-14] MEDS: DOCUSATE SODIUM 100MG CAPSULE PO SCH (08:52)
== END 2018-12-14 15:00 | disposition home health service (06) | DRG 291 ==
PROVIDERS: ADMIT Physical Medicine & Rehabilitation Spinal Cord Injury Medicine; ATTEND Internal Medicine
PROC: 5A09357 Assistance with Respiratory Ventilation, Less than 24 Consecutive Hours, Continuous Positive Airway Pressure (ICD-10-PCS; principal; 2018-12-02)
PROC: 5A09357 Assistance with Respiratory Ventilation, Less than 24 Consecutive Hours, Continuous Positive Airway Pressure (ICD-10-PCS; 2018-12-03)
PROC: 5A09357 Assistance with Respiratory Ventilation, Less than 24 Consecutive Hours, Continuous Positive Airway Pressure (ICD-10-PCS; 2018-12-04)
PROC: 5A09357 Assistance with Respiratory Ventilation, Less than 24 Consecutive Hours, Continuous Positive Airway Pressure (ICD-10-PCS; 2018-12-05)
PROC: 5A09357 Assistance with Respiratory Ventilation, Less than 24 Consecutive Hours, Continuous Positive Airway Pressure (ICD-10-PCS; 2018-12-06)
PROC: 5A09357 Assistance with Respiratory Ventilation, Less than 24 Consecutive Hours, Continuous Positive Airway Pressure (ICD-10-PCS; 2018-12-08)
DX: I11.0 Hypertensive heart disease with heart failure (principal); J96.22 Acute and chronic respiratory failure with hypercapnia; J44.1 Chronic obstructive pulmonary disease with (acute) exacerbation; N39.0 Urinary tract infection, site not specified; E46 Unspecified protein-calorie malnutrition; E66.2 Morbid (severe) obesity with alveolar hypoventilation; F33.1 Major depressive disorder, recurrent, moderate; I82.A12 Acute embolism and thrombosis of left axillary vein; I82.622 Acute embolism and thrombosis of deep veins of left upper extremity; I69.351 Hemiplegia and hemiparesis following cerebral infarction affecting right dominant side; Z68.43 Body mass index [BMI] 50.0-59.9, adult; I69.354 Hemiplegia and hemiparesis following cerebral infarction affecting left non-dominant side; K21.9 Gastro-esophageal reflux disease without esophagitis; Z16.19 Resistance to other specified beta lactam antibiotics; R32 Unspecified urinary incontinence; B95.1 Streptococcus, group B, as the cause of diseases classified elsewhere; B96.20 Unspecified Escherichia coli [E. coli] as the cause of diseases classified elsewhere; Z16.12 Extended spectrum beta lactamase (ESBL) resistance; D35.1 Benign neoplasm of parathyroid gland; E11.40 Type 2 diabetes mellitus with diabetic neuropathy, unspecified; E21.0 Primary hyperparathyroidism; E55.9 Vitamin D deficiency, unspecified; D50.9 Iron deficiency anemia, unspecified; E78.5 Hyperlipidemia, unspecified; E86.0 Dehydration; E87.6 Hypokalemia; F03.90 Unspecified dementia, unspecified severity, without behavioral disturbance, psychotic disturbance, mood disturbance, and anxiety; F41.9 Anxiety disorder, unspecified; I50.43 Acute on chronic combined systolic (congestive) and diastolic (congestive) heart failure; I27.22 Pulmonary hypertension due to left heart disease; I25.10 Atherosclerotic heart disease of native coronary artery without angina pectoris; H54.7 Unspecified visual loss; I50.82 Biventricular heart failure; K59.00 Constipation, unspecified; L89.90 Pressure ulcer of unspecified site, unspecified stage; R13.10 Dysphagia, unspecified; R31.9 Hematuria, unspecified; Z86.711 Personal history of pulmonary embolism; Z99.81 Dependence on supplemental oxygen; Z98.891 History of uterine scar from previous surgery; Z87.891 Personal history of nicotine dependence; Z98.41 Cataract extraction status, right eye; Z88.0 Allergy status to penicillin; Z85.3 Personal history of malignant neoplasm of breast; Z88.6 Allergy status to analgesic agent; Z88.2 Allergy status to sulfonamides; Z79.899 Other long term (current) drug therapy; Z79.51 Long term (current) use of inhaled steroids; Z82.49 Family history of ischemic heart disease and other diseases of the circulatory system
CPT/HCPCS: 36415; 71045; 76536; 76770; 78070; 80048; 82164; 82306; 82330; 82533; 82607; 82728; 82746; 82962; 83540; 83550; 83735; 83970; 84100; 84134; 84155; 84165; 84439; 84443; 87077; 87186; 92523; 92610; 92950; 93970; 94640; 94660; 97110; 97116; 97162; 97166; 97530; 97535; A9500; C1893; G0515; J1650; J1815; J3490; J7040; J7050; J7060; J7620; Q0163

== ENCOUNTER 2021-04-06 10:34 | Inpatient (IN) | payer MEDICARE, MEDICAID ==
[~2021-04-06] VITALS: Ht 170.2 cm; Wt 166.5 kg
[~2021-04-06 10:34] MED LIST changes: +ALBU4TAB6 MT; -ALBU6.7H9 INH; +AMLO2.5T2 PO; +APIX5TAB MT; +ASCO500C15 MT; +ATEN-42 PO; +CHOL40002 PO; +DOCU250C14 MT; -ESCI20TA36 PO; +GABA-532 PO; +LIP40 PO; +LISI30TA36 PO; -NITR100C MT; +POTA20TA82 MT; -PULM50 HHN
[2021-04-06] MEDS ORDERED: METHYLPREDNISOLONE SOD SUCC 125 MG/2 ML VIAL IV STA (10:57)
[2021-04-06] MEDS ORDERED: ALBUTEROL (0.083%) 2.5MG/3ML NEB HHN STA ×2 (10:57→16:38)
[2021-04-06] MEDS ORDERED: IPRATROPIUM BROMIDE (0.02%) 0.5MG/2.5ML NEB HHN STA (10:57)
[2021-04-06 11:11] LABS: BASOPHILS % 0.7 % (0.0-2.0); EOSINOPHILS % 1.7 % (0.0-5.0); HEMATOCRIT. 38.5 % (36.0-48.0); LYMPHOCYTES % 24.3 % (20.0-50.0); MEAN CORPUSCULAR HEMOGLOBIN 28.1 pg (28.0-32.0); MEAN CORPUSCULAR VOLUME 90.2 fL (81.0-99.0); MEAN PLATELET VOLUME 9.2 fl (7.4-10.4); MONOCYTES % 9.6 % (2.0-8.0); NEUTROPHILS % 63.7 % (40.0-76.0); PLATELET 161 x1000/uL (130-400); RED BLOOD CELL COUNT 4.27 mill/uL (4.2-5.4); RED CELL DISTRIBUTION WIDTH 17.6 % (11.6-14.6)
[2021-04-06 11:23] LABS: CHLORIDE 108 mEq/L (98-107)
[2021-04-06 11:54] LABS: INR 1.1; PROTHROMBIN TIME 11.4 sec (9.6-11.0)
[2021-04-06 13:00] LABS: BG BASE EXCESS 8.2 mmol/L (-2.0-2.0); BG CARBOXYHEMOGLOBIN 1.4 % (0.5-1.5); BG DEOXYHEMOGLOBIN 0.8 % (0.0-5.0); BG FRACTION INSPIRED OXYGEN 60; BG HCO3 ACT 39.2 mmol/L (22.0-26.0); BG METHEMOGLOBIN 0.3 % (0.0-1.5); BG OXYGEN SATURATION 99.2 % (92.0-98.5); BG OXYHEMOGLOBIN 97.5 % (94.0-97.0); BG PCO2 94.7 mmHg (35.0-45.0); BG PH 7.235 (7.350-7.450); BG PO2 183.6 mmHg (75.0-100.0); BG TOTAL HEMOGLOBIN 13.2 g/dL (12.0-18.0); BG VENT MODE MASK - CPAP
[2021-04-06] MEDS ORDERED: KETOROLAC 15MG/ML VIAL IV ONE (13:30)
[2021-04-06] MEDS ORDERED: LEVOFLOXACIN 750MG PREMIX 150 ML IV ONE (13:30)
[2021-04-06] MEDS ORDERED: FUROSEMIDE 40MG/4ML VIAL IVP ONE (15:45)
[2021-04-06] MEDS ORDERED: MORPHINE SULFATE 2 MG/ML CPJ (NOT FOR IM USE) IV PRN (20:00)
[2021-04-06] MEDS ORDERED: NALOXONE HCL 0.4MG/ML VIAL IV PRN (20:00)
[2021-04-07] MEDS: ACETAMINOPHEN 325MG TABLET PO PRN ×4 (01:28→22:05)
[2021-04-07] MEDS ORDERED: ACETAMINOPHEN 325MG TABLET PO PRN (08:45)
[2021-04-07] MEDS: FUROSEMIDE 40MG/4ML VIAL IVP SCH (10:25)
[2021-04-07] MEDS: APIXABAN 5 MG TABLET PO SCH ×2 (10:34→17:42)
[2021-04-07] MEDS: IPRATROPIUM/ALBUTEROL 0.5-3(2.5)MG/3ML NEB HHN SCH ×3 (12:16→20:11)
[2021-04-07] MEDS ORDERED: LIDOCAINE HCL/PF 1% 2ML VIAL ONE (13:28)
[2021-04-07 15:48] LABS: BG BASE EXCESS 10.6 mmol/L (-2.0-2.0); BG CARBOXYHEMOGLOBIN 1.2 % (0.5-1.5); BG DEOXYHEMOGLOBIN 2.5 % (0.0-5.0); BG FRACTION INSPIRED OXYGEN 60; BG HCO3 ACT 40.6 mmol/L (22.0-26.0); BG METHEMOGLOBIN 0.3 % (0.0-1.5); BG OXYGEN SATURATION 97.5 % (92.0-98.5); BG PCO2 85.8 mmHg (35.0-45.0); BG PH 7.293 (7.350-7.450); BG PO2 101.4 mmHg (75.0-100.0); BG SAMPLE SITE RIGHT RADIAL; BG TOTAL HEMOGLOBIN 13.1 g/dL (12.0-18.0); BG TOTAL RESPIRATORY RATE 23 b/min; BG VENT MODE MASK - CPAP
[2021-04-07] MEDS: METHYLPREDNISOLONE SOD SUCC 40 MG/ML VIAL IV SCH (17:42)
[2021-04-07] MEDS: BUDESONIDE 0.5MG/2ML NEB HHN SCH (20:10)
[2021-04-07 21:20] VITALS: BP 162/94
[2021-04-07 21:39] VITALS: BP 162/94
[2021-04-07 22:00] VITALS: BP 159/98
[2021-04-07 23:00] VITALS: BP 143/92
[2021-04-08] VITALS (13 sets, daily range): BP systolic 122–158; BP diastolic 76–110
[2021-04-08] MEDS: BUDESONIDE 0.5MG/2ML NEB HHN SCH ×2 (00:14→08:08)
[2021-04-08] MEDS: IPRATROPIUM/ALBUTEROL 0.5-3(2.5)MG/3ML NEB HHN SCH ×6 (00:15→21:32)
[2021-04-08] MEDS: HYDROCODONE/ACETAMINOPHEN 5/325MG TABLET PO PRN ×3 (02:09→21:14)
[2021-04-08] MEDS ORDERED: AZIT250T12 MT (03:39)
[2021-04-08] MEDS ORDERED: BRIM5DRO6 RIGHTEYE (03:42)
[2021-04-08] MEDS ORDERED: DORZ10DR8 RIGHTEYE (03:43)
[2021-04-08] MEDS ORDERED: BIMA2.5D5 RIGHTEYE (03:47)
[2021-04-08] MEDS ORDERED: GLYC15DR5 OP (03:50)
[2021-04-08] MEDS: APIXABAN 5 MG TABLET PO SCH ×2 (09:31→17:11)
[2021-04-08] MEDS: METHYLPREDNISOLONE SOD SUCC 40 MG/ML VIAL IV SCH ×2 (09:31→17:11)
[2021-04-08] MEDS: FUROSEMIDE 40MG/4ML VIAL IVP SCH (09:31)
[2021-04-08] MEDS: DORZOLAMIDE 2% OPHTH 10 ML BOTTLE RIGHTEYE SCH ×2 (10:05→17:11)
[2021-04-08 11:23] LABS: BASOPHILS % 0.1 % (0.0-2.0); HEMATOCRIT. 36.4 % (36.0-48.0); HEMOGLOBIN. 11.5 g/dL (12.0-16.0); LYMPHOCYTES % 15.3 % (20.0-50.0); MEAN CORPUSCULAR VOLUME 91.6 fL (81.0-99.0); MEAN PLATELET VOLUME 9.1 fl (7.4-10.4); MONOCYTES % 8.5 % (2.0-8.0); NEUTROPHILS % 76.1 % (40.0-76.0); PLATELET 164 x1000/uL (130-400); RED BLOOD CELL COUNT 3.98 mill/uL (4.2-5.4); RED CELL DISTRIBUTION WIDTH 16.8 % (11.6-14.6)
[2021-04-08] MEDS ORDERED: POLYVINYL ALCOHOL OPHTH DROPS 15ML RIGHTEYE PRN (14:00)
[2021-04-08] MEDS: BRIMONIDINE 0.2% OPHTH DROPS 5ML RIGHTEYE SCH ×2 (14:54→21:14)
[2021-04-08 15:23] LABS: BG BASE EXCESS 10.3 mmol/L (-2.0-2.0); BG DEOXYHEMOGLOBIN 2.8 % (0.0-5.0); BG FRACTION INSPIRED OXYGEN 50; BG HCO3 ACT 39.3 mmol/L (22.0-26.0); BG METHEMOGLOBIN 0.1 % (0.0-1.5); BG OXYGEN SATURATION 97.2 % (92.0-98.5); BG OXYHEMOGLOBIN 96.1 % (94.0-97.0); BG PCO2 76.4 mmHg (35.0-45.0); BG PH 7.329 (7.350-7.450); BG PO2 91.4 mmHg (75.0-100.0); BG SAMPLE SITE RIGHT BRACHIAL; BG TOTAL HEMOGLOBIN 12.9 g/dL (12.0-18.0); BG TOTAL RESPIRATORY RATE 21 b/min; BG VENT MODE MASK - BIPAP
[2021-04-08] MEDS: LATANOPROST 0.005% OPHTH DROPS 2.5ML RIGHTEYE SCH (21:14)
[2021-04-09] VITALS (12 sets, daily range): BP systolic 111–161; BP diastolic 74–101
[2021-04-09] MEDS: ONDANSETRON HCL 4MG/2ML INJ IV PRN (00:28)
[2021-04-09] MEDS: IPRATROPIUM/ALBUTEROL 0.5-3(2.5)MG/3ML NEB HHN SCH ×7 (01:35→23:58)
[2021-04-09] MEDS: BRIMONIDINE 0.2% OPHTH DROPS 5ML RIGHTEYE SCH ×3 (06:11→21:16)
[2021-04-09] MEDS: BUDESONIDE 0.5MG/2ML NEB HHN SCH ×2 (08:26→16:36)
[2021-04-09] MEDS: METHYLPREDNISOLONE SOD SUCC 40 MG/ML VIAL IV SCH ×2 (08:58→17:45)
[2021-04-09] MEDS: DORZOLAMIDE 2% OPHTH 10 ML BOTTLE RIGHTEYE SCH ×2 (08:59→17:47)
[2021-04-09] MEDS: FUROSEMIDE 40MG/4ML VIAL IVP SCH (08:59)
[2021-04-09] MEDS: APIXABAN 5 MG TABLET PO SCH ×2 (08:59→17:45)
[2021-04-09 09:04] LABS: BASOPHILS % 0.2 % (0.0-2.0); HEMATOCRIT. 36.4 % (36.0-48.0); HEMOGLOBIN. 11.4 g/dL (12.0-16.0); LYMPHOCYTES % 14.7 % (20.0-50.0); MEAN CORPUSCULAR HEMOGLOBIN 28.3 pg (28.0-32.0); MEAN CORPUSCULAR VOLUME 90.5 fL (81.0-99.0); MEAN PLATELET VOLUME 9.4 fl (7.4-10.4); MONOCYTES % 8.8 % (2.0-8.0); NEUTROPHILS % 76.3 % (40.0-76.0); PLATELET 166 x1000/uL (130-400); RED BLOOD CELL COUNT 4.02 mill/uL (4.2-5.4); RED CELL DISTRIBUTION WIDTH 16.9 % (11.6-14.6)
[2021-04-09] MEDS: ACETAMINOPHEN 325MG TABLET PO PRN ×2 (11:45→21:23)
[2021-04-09] MEDS: HYDROCODONE/ACETAMINOPHEN 5/325MG TABLET PO PRN (19:58)
[2021-04-09] MEDS ORDERED: ESCI5SOL2 PO (20:22)
[2021-04-09] MEDS ORDERED: BUME1TAB8 MT (20:22)
[2021-04-09] MEDS: LATANOPROST 0.005% OPHTH DROPS 2.5ML RIGHTEYE SCH (21:16)
[2021-04-10] VITALS (12 sets, daily range): BP systolic 115–155; BP diastolic 66–92
[2021-04-10] MEDS: IPRATROPIUM/ALBUTEROL 0.5-3(2.5)MG/3ML NEB HHN SCH ×5 (03:43→20:28)
[2021-04-10] MEDS: ACETAMINOPHEN 325MG TABLET PO PRN ×3 (06:08→23:14)
[2021-04-10] MEDS: BRIMONIDINE 0.2% OPHTH DROPS 5ML RIGHTEYE SCH ×3 (06:08→21:19)
[2021-04-10] MEDS: APIXABAN 5 MG TABLET PO SCH ×2 (08:34→17:38)
[2021-04-10] MEDS: FUROSEMIDE 40MG/4ML VIAL IVP SCH (08:34)
[2021-04-10] MEDS: METHYLPREDNISOLONE SOD SUCC 40 MG/ML VIAL IV SCH ×2 (08:34→17:37)
[2021-04-10] MEDS: DORZOLAMIDE 2% OPHTH 10 ML BOTTLE RIGHTEYE SCH ×2 (08:35→17:38)
[2021-04-10] MEDS: BUDESONIDE 0.5MG/2ML NEB HHN SCH (08:42)
[2021-04-10] MEDS ORDERED: P20 MT (11:04)
[2021-04-10] MEDS ORDERED: FURO-151 MT (11:04)
[2021-04-10] MEDS: HYDROCODONE/ACETAMINOPHEN 5/325MG TABLET PO PRN (17:37)
[2021-04-10] MEDS: ONDANSETRON HCL 4MG/2ML INJ IV PRN (17:37)
[2021-04-10] MEDS: LATANOPROST 0.005% OPHTH DROPS 2.5ML RIGHTEYE SCH (21:19)
[2021-04-11] VITALS (9 sets, daily range): BP systolic 131–156; BP diastolic 74–97
[2021-04-11] MEDS: IPRATROPIUM/ALBUTEROL 0.5-3(2.5)MG/3ML NEB HHN SCH ×4 (00:15→11:58)
[2021-04-11] MEDS: HYDROCODONE/ACETAMINOPHEN 5/325MG TABLET PO PRN (04:25)
[2021-04-11] MEDS: BRIMONIDINE 0.2% OPHTH DROPS 5ML RIGHTEYE SCH (05:37)
[2021-04-11] MEDS: APIXABAN 5 MG TABLET PO SCH (08:24)
[2021-04-11] MEDS: FUROSEMIDE 40MG/4ML VIAL IVP SCH (08:24)
[2021-04-11] MEDS: METHYLPREDNISOLONE SOD SUCC 40 MG/ML VIAL IV SCH (08:24)
[2021-04-11] MEDS: DORZOLAMIDE 2% OPHTH 10 ML BOTTLE RIGHTEYE SCH (08:25)
[2021-04-11] MEDS: ACETAMINOPHEN 325MG TABLET PO PRN (09:19)
[2021-04-12] MEDS ORDERED: METHYLPREDNISOLONE SOD SUCC 40 MG/ML VIAL IV SCH (09:00)
== END 2021-04-11 14:25 | disposition home health service (06) | DRG 291 ==
LOC: ER 10:43 → MICUSO 15:21 → EDBEDREQ 16:42 → EDBEDREQTM 16:42 → MICUSO 04-07 03:47 → 8WST 04-07 03:47 → MICUSO 04-07 04:02 → 8WST 04-07 04:02 → MICUSO 04-07 08:54 → 5EST 04-07 20:09
PROVIDERS: ADMIT Internal Medicine; ATTEND Internal Medicine
PROC: 5A09457 Assistance with Respiratory Ventilation, 24-96 Consecutive Hours, Continuous Positive Airway Pressure (ICD-10-PCS; principal; 2021-04-06)
DX: I11.0 Hypertensive heart disease with heart failure (principal); J96.02 Acute respiratory failure with hypercapnia; I50.33 Acute on chronic diastolic (congestive) heart failure; J44.1 Chronic obstructive pulmonary disease with (acute) exacerbation; E44.0 Moderate protein-calorie malnutrition; E66.2 Morbid (severe) obesity with alveolar hypoventilation; E87.2 Acidosis; Z68.43 Body mass index [BMI] 50.0-59.9, adult; I48.92 Unspecified atrial flutter; E87.8 Other disorders of electrolyte and fluid balance, not elsewhere classified; D72.819 Decreased white blood cell count, unspecified; E87.5 Hyperkalemia; E78.5 Hyperlipidemia, unspecified; K21.9 Gastro-esophageal reflux disease without esophagitis; Z20.822 Contact with and (suspected) exposure to COVID-19; S30.0XXA Contusion of lower back and pelvis, initial encounter; X58.XXXA Exposure to other specified factors, initial encounter; Z71.3 Dietary counseling and surveillance; Z99.81 Dependence on supplemental oxygen; Z88.5 Allergy status to narcotic agent; Z88.0 Allergy status to penicillin; Z88.2 Allergy status to sulfonamides; Z79.899 Other long term (current) drug therapy; Z79.84 Long term (current) use of oral hypoglycemic drugs; Z86.73 Personal history of transient ischemic attack (TIA), and cerebral infarction without residual deficits; Z85.3 Personal history of malignant neoplasm of breast; Z92.21 Personal history of antineoplastic chemotherapy; Z92.3 Personal history of irradiation; Z83.3 Family history of diabetes mellitus; Y93.89 Activity, other specified; Y92.89 Other specified places as the place of occurrence of the external cause; Y99.8 Other external cause status
CPT/HCPCS: 36415; 36600; 71045; 80048; 80053; 82040; 82375; 82805; 83880; 84134; 84484; 85025; 87426; 93005; 93306; 94640; 94660; 97162; 97530; 99291; J1885; J1940; J1956; J2270; J2310; J2405; J2920; J2930; J3490; J7626

== ENCOUNTER 2021-06-07 10:59 | Inpatient (IN) | payer MEDICARE, MEDICAID ==
[~2021-06-07] VITALS: Ht 167.6 cm; Wt 166.5 kg
[~2021-06-07 10:59] MED LIST changes: +AZIT250T12 MT; +BIMA2.5D5 RIGHTEYE; +BRIM5DRO6 RIGHTEYE; +BUME1TAB8 MT; +DORZ10DR8 RIGHTEYE; +ESCI5SOL2 PO; +GLYC15DR5 OP; +P20 MT
[2021-06-07] MEDS ORDERED: ASPIRIN 81MG TABLET PO ONE (11:30)
[2021-06-07] MEDS ORDERED: NITROGLYCERIN OINT 1GM/INCH UDPKT TD ONE (11:30)
[2021-06-07] MEDS ORDERED: FUROSEMIDE 40MG/4ML VIAL IV ONE (11:30)
[2021-06-07 11:37] LABS: BASOPHILS % 0.5 % (0.0-2.0); EOSINOPHILS % 2.4 % (0.0-5.0); HEMATOCRIT. 38.8 % (36.0-48.0); HEMOGLOBIN. 11.9 g/dL (12.0-16.0); LYMPHOCYTES % 22.5 % (20.0-50.0); MEAN CORPUSCULAR VOLUME 91.7 fL (81.0-99.0); MEAN PLATELET VOLUME 9.2 fl (7.4-10.4); MONOCYTES % 9.8 % (2.0-8.0); NEUTROPHILS % 64.8 % (40.0-76.0); PLATELET 160 x1000/uL (130-400); RED BLOOD CELL COUNT 4.23 mill/uL (4.2-5.4); RED CELL DISTRIBUTION WIDTH 17.9 % (11.6-14.6)
[2021-06-07 12:14] LABS: BG CARBOXYHEMOGLOBIN 0.5 % (0.5-1.5); BG DEOXYHEMOGLOBIN 1.1 % (0.0-5.0); BG FRACTION INSPIRED OXYGEN 99.8; BG HCO3 ACT 39.9 mmol/L (22.0-26.0); BG METHEMOGLOBIN 0.2 % (0.0-1.5); BG OXYGEN SATURATION 98.9 % (92.0-98.5); BG OXYHEMOGLOBIN 98.2 % (94.0-97.0); BG PCO2 85.4 mmHg (35.0-45.0); BG PH 7.287 (7.350-7.450); BG PO2 183.2 mmHg (75.0-100.0); BG SAMPLE SITE RIGHT RADIAL; BG TOTAL HEMOGLOBIN 12.5 g/dL (12.0-18.0); BG VENT MODE MASK - NRB
[2021-06-07 12:57] LABS: CHLORIDE 105 mEq/L (98-107)
[2021-06-07 13:10] LABS: BG BASE EXCESS 8.6 mmol/L (-2.0-2.0); BG CARBOXYHEMOGLOBIN 1.1 % (0.5-1.5); BG DEOXYHEMOGLOBIN 5.7 % (0.0-5.0); BG HCO3 ACT 36.9 mmol/L (22.0-26.0); BG METHEMOGLOBIN 0.3 % (0.0-1.5); BG OXYGEN SATURATION 94.2 % (92.0-98.5); BG OXYHEMOGLOBIN 92.9 % (94.0-97.0); BG PCO2 70.4 mmHg (35.0-45.0); BG PH 7.337 (7.350-7.450); BG PO2 75.5 mmHg (75.0-100.0); BG SAMPLE SITE UAL; BG TOTAL HEMOGLOBIN 12.6 g/dL (12.0-18.0); BG VENT MODE MASK - BIPAP
[2021-06-07] MEDS ORDERED: HYDROCODONE/ACETAMINOPHEN 5/325MG TABLET PO PRN (17:15)
[2021-06-07] MEDS ORDERED: NALOXONE HCL 0.4MG/ML VIAL IV PRN (17:30)
[2021-06-07] MEDS: HYDROCODONE/ACETAMINOPHEN 5/325MG TABLET PO PRN (17:36)
[2021-06-08] VITALS (9 sets, daily range): BP systolic 122–168; BP diastolic 70–104
[2021-06-08] MEDS: HYDROCODONE/ACETAMINOPHEN 5/325MG TABLET PO PRN (01:15)
[2021-06-08] MEDS ORDERED: IPRATROPIUM/ALBUTEROL 0.5-3(2.5)MG/3ML NEB HHN PRN (12:30)
[2021-06-08] MEDS: METHYLPREDNISOLONE SOD SUCC 40 MG/ML VIAL IV SCH ×2 (13:18→21:48)
[2021-06-08 13:34] LABS: BG BASE EXCESS 10.2 mmol/L (-2.0-2.0); BG CARBOXYHEMOGLOBIN 1.1 % (0.5-1.5); BG DEOXYHEMOGLOBIN 6.6 % (0.0-5.0); BG FRACTION INSPIRED OXYGEN 40; BG HCO3 ACT 39.3 mmol/L (22.0-26.0); BG METHEMOGLOBIN 0.3 % (0.0-1.5); BG OXYGEN SATURATION 93.3 % (92.0-98.5); BG PCO2 78.8 mmHg (35.0-45.0); BG PH 7.316 (7.350-7.450); BG PO2 71.5 mmHg (75.0-100.0); BG SAMPLE SITE RIGHT RADIAL; BG TOTAL HEMOGLOBIN 12.6 g/dL (12.0-18.0); BG VENT MODE NASAL CANNULA
[2021-06-08 17:22] LABS: BG BASE EXCESS 4.1 mmol/L (-2.0-2.0); BG CARBOXYHEMOGLOBIN 1.1 % (0.5-1.5); BG DEOXYHEMOGLOBIN 2.7 % (0.0-5.0); BG FRACTION INSPIRED OXYGEN 50; BG HCO3 ACT 32.3 mmol/L (22.0-26.0); BG METHEMOGLOBIN 0.2 % (0.0-1.5); BG OXYGEN SATURATION 97.3 % (92.0-98.5); BG PCO2 65.7 mmHg (35.0-45.0); BG PH 7.309 (7.350-7.450); BG PO2 95.2 mmHg (75.0-100.0); BG SAMPLE SITE UAC; BG TOTAL HEMOGLOBIN 13.4 g/dL (12.0-18.0); BG VENT MODE MASK - BIPAP
[2021-06-08] MEDS: FUROSEMIDE 40MG/4ML VIAL IVP SCH (18:13)
[2021-06-08] MEDS ORDERED: LIDOCAINE HCL/PF 1% 2ML VIAL ONE (22:30)
[2021-06-08 22:51] LABS: BG BASE EXCESS 9.1 mmol/L (-2.0-2.0); BG CARBOXYHEMOGLOBIN 1.2 % (0.5-1.5); BG FRACTION INSPIRED OXYGEN 50; BG HCO3 ACT 36.6 mmol/L (22.0-26.0); BG METHEMOGLOBIN 0.2 % (0.0-1.5); BG OXYHEMOGLOBIN 95.6 % (94.0-97.0); BG PCO2 63.9 mmHg (35.0-45.0); BG PH 7.376 (7.350-7.450); BG PO2 91.2 mmHg (75.0-100.0); BG SAMPLE SITE RIGHT RADIAL; BG TOTAL HEMOGLOBIN 13.5 g/dL (12.0-18.0); BG VENT MODE MASK - BIPAP
[2021-06-09] VITALS (12 sets, daily range): BP systolic 110–168; BP diastolic 68–100
[2021-06-09] MEDS: ONDANSETRON HCL 4MG/2ML INJ IV PRN (01:00)
[2021-06-09] MEDS: METHYLPREDNISOLONE SOD SUCC 40 MG/ML VIAL IV SCH ×3 (06:35→21:10)
[2021-06-09 07:18] LABS: BASOPHILS % 0.1 % (0.0-2.0); HEMATOCRIT. 38.4 % (36.0-48.0); HEMOGLOBIN. 12.3 g/dL (12.0-16.0); LYMPHOCYTES % 10.3 % (20.0-50.0); MEAN CORPUSCULAR HEMOGLOBIN 28.8 pg (28.0-32.0); MEAN PLATELET VOLUME 9.6 fl (7.4-10.4); MONOCYTES % 1.8 % (2.0-8.0); NEUTROPHILS % 87.8 % (40.0-76.0); PLATELET 184 x1000/uL (130-400); RED BLOOD CELL COUNT 4.26 mill/uL (4.2-5.4)
[2021-06-09] MEDS: FUROSEMIDE 40MG/4ML VIAL IVP SCH ×2 (08:24→17:44)
[2021-06-09] MEDS ORDERED: CLONIDINE 0.1MG TABLET PO PRN (10:45)
[2021-06-09] MEDS: AMLODIPINE 10MG TABLET PO SCH (11:01)
[2021-06-09] MEDS ORDERED: HYDRALAZINE HCL 100MG TABLET PO SCH (12:45)
[2021-06-09] MEDS: ASCORBIC ACID 500 MG TABLET PO SCH (14:39)
[2021-06-09 15:16] LABS: BG BASE EXCESS 3.1 mmol/L (-2.0-2.0); BG CARBOXYHEMOGLOBIN 0.7 % (0.5-1.5); BG HCO3 ACT 29.7 mmol/L (22.0-26.0); BG METHEMOGLOBIN 0.6 % (0.0-1.5); BG OXYHEMOGLOBIN 96.7 % (94.0-97.0); BG PCO2 53.5 mmHg (35.0-45.0); BG PH 7.362 (7.350-7.450); BG PO2 108.1 mmHg (75.0-100.0); BG SAMPLE SITE RIGHT RADIAL; BG TOTAL HEMOGLOBIN 13.6 g/dL (12.0-18.0); BG VENT MODE MASK - BIPAP
[2021-06-09] MEDS: ACETAMINOPHEN 325MG TABLET PO PRN ×2 (16:21→22:31)
[2021-06-09] MEDS: APIXABAN 5 MG TABLET PO SCH (17:44)
[2021-06-09] MEDS: DOCUSATE SODIUM 250MG CAPSULE PO SCH (17:44)
[2021-06-09] MEDS: IPRATROPIUM/ALBUTEROL 0.5-3(2.5)MG/3ML NEB HHN SCH (20:34)
[2021-06-09] MEDS ORDERED: ATORVASTATIN CALCIUM 40MG TABLET PO SCH (21:00)
[2021-06-09] MEDS ORDERED: DORZOLAM/TIMOLOL 2.23/0.68% OPHTH DROPS 10ML BOTHEYE SCH (21:00)
[2021-06-09] MEDS: BRIMONIDINE 0.2% OPHTH DROPS 5ML RIGHTEYE SCH (21:10)
[2021-06-09] MEDS: DORZOLAM/TIMOLOL 2.23/0.68% OPHTH DROPS 10ML RIGHTEYE SCH (21:10)
[2021-06-09] MEDS: HYDRALAZINE HCL 100MG TABLET PO SCH (21:11)
[2021-06-10] VITALS (9 sets, daily range): BP systolic 110–144; BP diastolic 59–91
[2021-06-10] MEDS: IPRATROPIUM/ALBUTEROL 0.5-3(2.5)MG/3ML NEB HHN SCH ×5 (00:05→15:47)
[2021-06-10] MEDS: ONDANSETRON HCL 4MG/2ML INJ IV PRN (00:09)
[2021-06-10] MEDS: HYDROCODONE/ACETAMINOPHEN 5/325MG TABLET PO PRN (01:45)
[2021-06-10] MEDS: BRIMONIDINE 0.2% OPHTH DROPS 5ML RIGHTEYE SCH ×2 (05:09→13:53)
[2021-06-10] MEDS: METHYLPREDNISOLONE SOD SUCC 40 MG/ML VIAL IV SCH ×2 (05:09→13:53)
[2021-06-10] MEDS: FUROSEMIDE 40MG/4ML VIAL IVP SCH ×2 (08:14→17:09)
[2021-06-10] MEDS: HYDRALAZINE HCL 100MG TABLET PO SCH (08:16)
[2021-06-10] MEDS: APIXABAN 5 MG TABLET PO SCH ×2 (08:17→17:09)
[2021-06-10] MEDS: AMLODIPINE 10MG TABLET PO SCH (08:18)
[2021-06-10] MEDS: DOCUSATE SODIUM 250MG CAPSULE PO SCH ×2 (08:18→17:09)
[2021-06-10] MEDS: ASCORBIC ACID 500 MG TABLET PO SCH (08:22)
[2021-06-10] MEDS ORDERED: CHOLECALCIFEROL (D3) 1000 UNIT TABLET PO SCH (09:00)
[2021-06-10] MEDS: DORZOLAM/TIMOLOL 2.23/0.68% OPHTH DROPS 10ML RIGHTEYE SCH (09:38)
[2021-06-10] MEDS: ACETAMINOPHEN 325MG TABLET PO PRN (11:51)
[2021-06-10] MEDS ORDERED: METHYLPREDNISOLONE SOD SUCC 40 MG/ML VIAL IV SCH (23:00)
== END 2021-06-10 17:40 | disposition home or self-care (01) | DRG 291 ==
LOC: ER 10:59 → MICUSO 13:40 → EDBEDREQ 13:43 → EDBEDREQSVC 13:43 → EDBEDREQTM 13:43 → MICUSO 06-08 07:45 → 5EST 06-08 07:45
PROVIDERS: ADMIT Internal Medicine; ATTEND Internal Medicine
PROC: 5A09357 Assistance with Respiratory Ventilation, Less than 24 Consecutive Hours, Continuous Positive Airway Pressure (ICD-10-PCS; principal; 2021-06-07)
PROC: 5A09357 Assistance with Respiratory Ventilation, Less than 24 Consecutive Hours, Continuous Positive Airway Pressure (ICD-10-PCS; 2021-06-08)
PROC: 5A09357 Assistance with Respiratory Ventilation, Less than 24 Consecutive Hours, Continuous Positive Airway Pressure (ICD-10-PCS; 2021-06-09)
PROC: 5A09357 Assistance with Respiratory Ventilation, Less than 24 Consecutive Hours, Continuous Positive Airway Pressure (ICD-10-PCS; 2021-06-10)
DX: I11.0 Hypertensive heart disease with heart failure (principal); J96.01 Acute respiratory failure with hypoxia; I50.33 Acute on chronic diastolic (congestive) heart failure; J96.02 Acute respiratory failure with hypercapnia; E44.1 Mild protein-calorie malnutrition; E87.2 Acidosis; Z68.43 Body mass index [BMI] 50.0-59.9, adult; G47.33 Obstructive sleep apnea (adult) (pediatric); J44.9 Chronic obstructive pulmonary disease, unspecified; Z86.73 Personal history of transient ischemic attack (TIA), and cerebral infarction without residual deficits; I48.91 Unspecified atrial fibrillation; K21.9 Gastro-esophageal reflux disease without esophagitis; Z88.0 Allergy status to penicillin; Z88.2 Allergy status to sulfonamides; Z88.5 Allergy status to narcotic agent; Z88.8 Allergy status to other drugs, medicaments and biological substances; Z20.822 Contact with and (suspected) exposure to COVID-19; E66.9 Obesity, unspecified
CPT/HCPCS: 36415; 36600; 71045; 80048; 80053; 82375; 82805; 83880; 84484; 85025; 87426; 93005; 94640; 94660; 97162; 99291; C1893; J1940; J2405; J2920; J3490; U0003; U0005

== ENCOUNTER → 2022-02-02 | Outpatient (CLI) | payer MEDICARE, MEDICAID ==
[~2022-02-02] MED LIST changes: +POTA-205 MT; -POTA20TA82 MT
== END | disposition home or self-care (01) ==
LOC: CT 08:44
PROVIDERS: ATTEND Internal Medicine Pulmonary Disease
DX: I67.82 Cerebral ischemia (principal); G31.9 Degenerative disease of nervous system, unspecified; R90.82 White matter disease, unspecified; R41.82 Altered mental status, unspecified